=== PATIENT | female | born 1990 | race Caucasian/White ===

== ENCOUNTER 2021-12-10 16:28 | Emergency (ER) | payer MEDICAID, SELFPAY ==
--- NOTE | ~2021-12-10 | XR_ITS ---
EXAMINATION: XR CHEST CLINICAL INFORMATION: Cough. COMPARISON: None. TECHNIQUE: PA view of the chest was obtained. FINDINGS: Normal appearance of the cardiomediastinal silhouette. Questionable mild peribronchial cuffing without focal airspace opacities, pleural effusions or pneumothorax. No acute osseous abnormalities. The upper abdomen is within normal limits. XR/XR chest 1V IMPRESSION: Mild peribronchial cuffing which is nonspecific and could be seen with asthma, reactive airways disease or atypical infections.
[2021-12-10 16:42] VITALS: BP 117/78; BP 145/85; PULSE 108; PULSE 113; RESP 18; TEMP 36.4; O2SAT 100; O2SAT 99; BMI 42.8
--- NOTE | 2021-12-10 17:01 | ED.GENADULT ---
HPI - General Adult General Chief complaint: Upper Respiratory Symptoms Stated complaint: COUGH,COLD SYMP X'S 3 DAYS PER EMS Time Seen by Provider: 12/10/21 16:46 Source: patient Mode of arrival: ambulatory Limitations: no limitations History of Present Illness HPI narrative: [age] year female with history of asthma presents to ED for coughing, body aches, chills, and wheezing. Patient states her daughter was sick 1st and now she is sick. Patient states her daughter tested negative for COVID. Patient states she has been vaccinated and received booster and overall Pfizer. He denies any leg swelling, pleuritic chest pain, coughing up blood, calf pain, or shortness of breath on exertion. Related Data Previous Rx's Medication Instructions Recorded benzonatate 100 mg capsule 100 mg PO TID PRN #15 cap 12/10/21 prednisone 20 mg tablet 40 mg PO DAILY 5 Days #10 tab 12/10/21 Allergies Allergy/AdvReac Type Severity Reaction Status Date / Time latex Allergy Rash Verified 12/10/21 16:41 shrimp Allergy Anaphylaxis Verified 12/10/21 16:41 Review of Systems Review of Systems: Cough, body aches, chills, and wheezing Yes all other systems are reviewed and are negative FOR[facility]LY [facility] Past Medical History Medical History (Updated 12/10/21 @ 18:55 by TIARA Hoffman) Asthma Idiopathic retinal vasculitis, retinal aneurysm, and neuroretinitis syndrome Social History Social History Advance Directives: No Advance Directives Information Provided: No Patient : No Physical Exam Vital Signs: Vital Signs: Last Vital Signs Temp 100.5 F H 12/10/21 18:56 Pulse 114 H 12/10/21 18:56 Resp 17 12/10/21 18:56 BP 115/75 12/10/21 18:56 Pulse Ox 96 12/10/21 18:56 BMI result Body Mass Index 42.8 Const: General: cooperative, healthy appearing, comfortable, no acute distress, well developed, alert, awake and Physically active Orientation/consciousness: patient oriented x3 HENMT: Head: Yes normal to inspection, Yes No palpable skull fracture present, Yes normocephalic, Yes atraumatic and No abrasion Ears: hearing grossly normal bilaterally, external ears normal, TM's normal bilaterally, EAC's normal, mastoids normal and no periauricular adenopathy Throat: Yes posterior oropharynx normal, Yes tonsils normal and Yes uvula midline Eyes: General: appearance normal, both eyes and all related structures Neck: Neck: Yes normal visual inspection, Yes full ROM, Yes no lymphadenopathy, Yes no meningeal signs, Yes trachea midline, Yes supple, No anterior neck swelling and No tender Chest: Chest palpation & inspection: normal inspection of the chest and normal palpation of entire chest wall Resp: Effort & Inspection: normal respiratory effort and able to speak in complete sentences Auscultation: wheezes expiratory wheezes Cardio: Jugular venous distension: no JVD Heart sounds: S1 normal heart sound present and S2 normal heart sound present GI: Inspection: Yes normal to inspection and No abdominal wall ecchymosis Palpation (GI): Soft to palpation, not firm, nontender, no guarding and not rigid : General: No CVA tenderness and Yes no CVA tenderness Back/Spine/Pelvis: Back: no CVA tenderness, No CVA tenderness and No back tenderness Skin: General skin exam: no rashes or lesions noted and elasticity normal Neuro: General: patient oriented x3, gait normal, no meningeal signs and CN's II-XI intact bilaterally Cranial nerves: Yes CN's II-XII intact bilaterally Extrem: Other: Lower extremities negative for swelling, pitting edema, or calf tenderness. General: Yes normal to inspection and Yes full ROM Psych: Appearance: grossly normal, well kempt and not disheveled Course Course Course Narrative: Albuterol inhaler treatment ordered. Steroids ordered. Chest x-ray ordered. COVID swab ordered. Reevaluation(s) Reevaluation #1: COVID swab negative. Chest x-ray shows airway reactive disease. Diagnosis viral induced asthma. Patient feels better after receiving treatment. Patient informed to continue taking albuterol pump and will be discharged with steroids and coughing medication. PATIENT TACHYCARDIC DUE TO ALBUTEROL AND FEVER. PATIENT WELL-APPEARING. NO FURTHER WORKUP/LABS INDICATED. Time: 18:[address] [facility] Narrative Medical decision making narrative: Asthma Lab Data Labs: Lab Results 12/10/21 Range/Units 17:20 COVID-19 (LUIS) Negative (Negative) COVID-19 Clin Com See Note Discharge Plan Discharge Clinical Impression: Upper respiratory infection, Asthma Patient Disposition: Home, Self-Care Instructions: Asthma (DC), Upper Respiratory Infection (DC) Additional Instructions: Continue using albuterol pump at home. The x-ray came back negative for pneumonia. Your Covid test came back negative. Recommend re-testing for covid in 5 days if symptoms conitnue. You will be discharged with steroids and cough medication. Return to the ED immediately for any chest pain, shortness of breath, weakness, dizziness, leg swelling, calf pain, coughing up blood, fever, chills or any other concerning symptoms. Prescriptions: New prednisone 20 mg tablet 40 mg PO DAILY 5 Days Qty: 10 0RF benzonatate 100 mg capsule 100 mg PO TID PRN (Reason: cough) Qty: 15 0RF Stand Alone Forms: Work/School Release Interventions: ED Discharge Assessment Last Done: 12/10/21 19:21 Discharge Date/Time: 12/10/21 19:23 Print Language: Czech
[2021-12-10] MEDS: Albuterol/Iprat 2.5/0.5MG 3 ML AMPUL.NEB INHALE (17:14)
[2021-12-10 17:15] VITALS: PULSE 114; RESP 20; O2SAT 99
[2021-12-10] MEDS: predniSONE 20 MG TABLET 60 MG PO (17:20)
[2021-12-10 17:43] LABS: COVID-19 Test Negative (Negative)
[2021-12-10 18:56] VITALS: BP 115/75; PULSE 114; RESP 17; TEMP 38.1; O2SAT 96
== END 2021-12-10 19:23 | disposition home or self-care (01) ==
PROVIDERS: Physician Assistant; Emergency Provider Emergency Medicine; PCP Internal Medicine
DX: J06.9 Acute upper respiratory infection, unspecified (principal); J45.909 Unspecified asthma, uncomplicated; Z20.822 Contact with and (suspected) exposure to COVID-19
CPT/HCPCS: 71045; 87635; 94640; 99284

== ENCOUNTER 2022-10-02 15:37 | Emergency (ER) | payer MEDICAID, SELFPAY ==
--- NOTE | 2022-10-02 18:33 | PC.NURSE ---
Pt called for triage, Pt not in waiting room.
--- NOTE | 2022-10-02 20:01 | PC.NURSE ---
called for triage, not in waiting room.
== END 2022-10-02 20:35 | disposition left against medical advice (07) ==
LOC: HO.ED 20:33
PROVIDERS: Emergency Provider Emergency Medicine; PCP Internal Medicine
DX: J02.9 Acute pharyngitis, unspecified (principal); H92.09 Otalgia, unspecified ear

== ENCOUNTER 2024-07-01 10:27 | Outpatient (REF) | payer MEDICAID, SELFPAY ==
[2024-07-03 22:04] LABS: TS Negative Control Passed; TS Panel A 0; TS Panel B 0; TS Positive Control Passed; TSpotTB Negative (Negative)
== END 2024-07-01 10:28 | disposition home or self-care (01) ==
LOC: HO.HHCL 10:27
PROVIDERS: Visit Provider Internal Medicine
DX: Z11.1 Encounter for screening for respiratory tuberculosis (principal)
CPT/HCPCS: 36415; 86481

== ENCOUNTER 2024-08-19 12:26 | Outpatient (REF) | payer MEDICAID, SELFPAY ==
--- NOTE | ~2024-08-19 | XR_ITS ---
EXAMINATION: XR SHOULDER, RIGHT CLINICAL INFORMATION: Worsening right shoulder pain for 3 weeks COMPARISON: None available. TECHNIQUE: AP external rotation, Grashey, scapular Y, and axillary views of the right shoulder. FINDINGS: The bones and soft tissues are normal. No fracture. Glenohumeral and acromioclavicular alignment is anatomic with normal joint space. No abnormal soft tissue calcifications. XR/XR shoulder RT min 2V IMPRESSION: Normal right shoulder. Electronically signed by: Josias Delacruz MD 08/19/2024 03:02 PM EDT
== END 2024-08-19 12:27 | disposition home or self-care (01) ==
LOC: HO.HHCX 12:26
PROVIDERS: Visit Provider Nurse Practitioner Primary Care
DX: M25.511 Pain in right shoulder (principal)
CPT/HCPCS: 73030

== ENCOUNTER 2025-04-20 13:05 | Emergency (ER) | payer MEDICAID, SELFPAY ==
--- NOTE | ~2025-04-20 | XR_ITS ---
EXAMINATION: XR SHOULDER, RIGHT CLINICAL INFORMATION: pain COMPARISON: 08/19/2024. TECHNIQUE: Three views of the right shoulder. FINDINGS: Normal bone mineralization. No fracture, dislocation, or suspicious bone lesion. Normal alignment. The glenohumeral joint is normal. The AC joint is normal. There is a type II acromion. No undersurface spurring. The subacromial space is preserved. Remainder of the soft tissue and bony structures appear normal. XR/XR shoulder RT min 2V IMPRESSION: Normal right shoulder. Electronically signed by: Victoriano Pozo MD 04/20/2025 01:42 PM EDT
--- NOTE | ~2025-04-20 | XR_ITS ---
EXAMINATION: XR CHEST CLINICAL INFORMATION: pain COMPARISON: 12/10/21 TECHNIQUE: 2 views of the chest were obtained. FINDINGS: The cardiac, hilar, and mediastinal contours are normal. The lungs are clear bilaterally. There is no pneumothorax or pleural effusion. There is no focal osseous or soft tissue abnormality. XR/XR chest 2V IMPRESSION: Normal chest. Electronically signed by: Victoriano Pozo MD 04/20/2025 01:41 PM EDT
[2025-04-20 13:18] VITALS: BP 126/81; PULSE 78; RESP 16; TEMP 36.1; O2SAT 97; BMI 40.0
--- NOTE | 2025-04-20 13:19 | ECG_ITS ---
Test Reason : PAIN Blood Pressure : */* mmHG Vent. Rate : 66 BPM Atrial Rate : 66 BPM P-R Int : 164 ms QRS Dur : 84 ms QT Int : 406 ms P-R-T Axes : 66 56 56 degrees QTcB Int : 425 ms Normal sinus rhythm with sinus arrhythmia Normal ECG No previous ECGs available Referred By: Volodymyr Dinh Electronically Signed By: Shad Hernandes
--- NOTE | 2025-04-20 13:19 | ED.GENADULT ---
HPI - General Adult General Chief complaint: Extremity Injury, Upper Stated complaint: R Shoulder, R Side Chest Pain, Difficulty Breathin Time Seen by Provider: 04/20/25 16:53 Source: patient and RN notes reviewed Mode of arrival: ambulatory Limitations: no limitations History of Present Illness ED Provider: Jalyn Ramirez PA-C HPI narrative: This is a 34-year-old female who presents emergency department with complaints of right shoulder pain and chest pain status post taking her bra off yesterday. Patient states that while she was reaching behind her on clasping her bra she suddenly felt a popping sensation in her right arm, and has had pain in her right arm since. She states that she also has discomfort in her chest which worsens with the movement of her arm. She denies any shortness for breath. No fevers or chills. No palpitations. Pain in her chest and right shoulder worsens with movement and with palpation. She is not on OCPs. No recent travel, surgery, or hospitalizations. No other complaints or concerns at this time. MD complaint: Left shoulder Related Data Previous Rx's ?Medication ?Instructions ?Recorded benzonatate 100 mg capsule 100 mg PO TID PRN cough #15 caps 12/10/21 prednisone 20 mg tablet 40 mg (2 x 20 mg) PO DAILY 5 days 12/10/21 #10 tabs acetaminophen 500 mg tablet 500 mg PO Q6H PRN pain #30 tabs 04/20/25 (Tylenol Extra Strength) ibuprofen 600 mg tablet 600 mg PO Q6H PRN pain #30 tabs 04/20/25 morphine 15 mg immediate release 15 mg PO Q6H PRN severe pain 04/20/25 tablet (scale score 7-10) #7 tabs oxycodone 5 mg tablet 5 mg PO Q8H PRN severe pain (scale 04/20/25 score 7-10) #7 tabs Allergies Allergy/AdvReac Type Severity Reaction Status Date / Time latex Allergy Rash Verified 04/20/25 13:22 shrimp Allergy Anaphylaxis Verified 04/20/25 13:22 Review of Systems Review of Systems: Yes all other systems are reviewed and are negative Constitutional: Constitutional: Reports as per [facility] Past Medical History Attestation statement: The following information was validated with the patient. Medical History Idiopathic retinal vasculitis, retinal aneurysm, and neuroretinitis syndrome Asthma Social History Social History Advance Directives: No Advance Directives Information Provided: No Do you have a plan to hurt others: No Plan Physical Exam ED Vital Signs: Vital Signs - 24 hr 04/20/25 13:18 Temperature 97.0 F Pulse Rate 78 Respiratory Rate 16 Blood Pressure 126/81 Pulse Oximetry 97 Oxygen Delivery Method Room Air BMI result Body Mass Index 40.0 Const General: cooperative, comfortable and no acute distress Orientation/consciousness: patient oriented x3 Limitations: no limitations HENMT Head: Yes normal to inspection, Yes normocephalic and Yes atraumatic Ears: hearing grossly normal bilaterally General nose exam: Normal external nose present Face and sinus: Yes normal facial exam Mouth: Normal oral and palatal mucosa present, oropharynx normal and moist mucous membranes Throat: Yes posterior oropharynx normal Eyes General: appearance normal, both eyes and all related structures Eyelids: Yes eyelids normal Conjunctivae: conjunctivae normal Sclerae: sclerae normal Pupils: Equal, round and reactive pupils present EOM: EOMs intact bilaterally Neck Neck: Yes normal visual inspection, Yes full ROM and Yes no lymphadenopathy Lymphatic: no lymphadenopathy noted Chest Other: Tenderness palpation along the anterior chest wall Chest palpation & inspection: normal inspection of the chest Resp Effort & Inspection: normal respiratory effort and able to speak in complete sentences Auscultation: clear to auscultation bilaterally, no crackles, no rales, no rhonchi and no wheezes Cardio Rate: regular rate Rhythm: regular rhythm Heart sounds: S1 normal heart sound present and S2 normal heart sound present GI Inspection: Yes normal to inspection Skin General skin exam: no rashes or lesions noted Trauma: no lacerations or abrasions Wounds: no wounds Neuro General: patient oriented x3 and moves all extremities Cranial nerves: Yes Equal, round and reactive pupils present Extrem Other: Right shoulder with no obvious bony deformity or swelling, no overlying erythema or edema. Pain with flexion, proximally to 110?. Strong radial pulse. Negative empty can, able to abduct to approximately 130? positive lift-off test. General: Yes normal to inspection Right upper extremity: normal to inspection Left upper extremity: normal to inspection Right lower extremity: normal to inspection Left lower extremity: normal to inspection Course Course Course Narrative: RME, this is a rapid medical exam performed by Oli Dinh please refer to primary provider for complete H&P- 34-year-old female presents for evaluation of right-sided chest pain and shoulder pain. Her symptoms started when she is in the gym when she reached behind her with the right arm and felt a pop in her right shoulder. Plan for EKG, chest x-ray and right shoulder x-ray. Medications Administered Discontinued Medications Generic Name Dose Route Start Last Admin Trade Name Ramonq PRN Reason Stop Dose Admin Ketorolac Tromethamine 30 mg 04/20/25 17:06 04/20/25 17:11 Ketorolac Tromethamine 30 Mg/Ml Vial IM 04/20/25 17:07 30 mg ONCE ONE Administration Medical Decision Making Medical Decision Making [facility] Narrative: This is a 34-year-old female who presents emergency department with complaints of right shoulder pain status post attempting to take off her bra 1 day ago. [place] a popping sensation immediately had pain On arrival, vital signs within normal limits. right shoulder x-ray revealing no acute findings. Chest x-ray revealing no acute findings. EKG normal sinus rhythm with sinus arrhythmia, at a ventricular rate of 66 beats per minute, TX interval 164, QT QTC 406/420. No STEMI. Discussed findings with patient, she will follow-up with orthopedics. Given strict return precautions. Patient stable for discharge Differential Diagnosis Differential Diagnoses: The differential diagnosis associated with the presentation includes Dislocation, fracture, contusion, sprain Independent Interpretation I performed an independent interpretation of an: EKG Interpretation: See [facility] Radiology Impression Discussion of test interpretation with radiology: I have reviewed the radiologist's reading. Radiologist Impression: FINDINGS: Normal bone mineralization. No fracture, dislocation, or suspicious bone lesion. Normal alignment. The glenohumeral joint is normal. The AC joint is normal. There is a type II acromion. No undersurface spurring. The subacromial space is preserved. Remainder of the soft tissue and bony structures appear normal. XR/XR shoulder RT min 2V IMPRESSION: Normal right shoulder. Electronically signed by: Victoriano Pozo MD 04/20/2025 01:42 PM EDT Dictated By: Victoriano Pozo MD FINDINGS: Normal bone mineralization. No fracture, dislocation, or suspicious bone lesion. Normal alignment. The glenohumeral joint is normal. The AC joint is normal. There is a type II acromion. No undersurface spurring. The subacromial space is preserved. Remainder of the soft tissue and bony structures appear normal. XR/XR shoulder RT min 2V IMPRESSION: Normal right shoulder. Electronically signed by: Victoriano Pozo MD 04/20/2025 01:42 PM EDT RP Dictated By: Victoriano Pozo MD Discharge Plan Discharge Clinical Impression: Shoulder pain, right Patient Disposition: Home, Self-Care Instructions: Shoulder Pain (ED), Arm Pain (ED) Additional Instructions: You were seen in the emergency department due to right shoulder pain. Your x-rays do not show any bony abnormalities however you may have a ligament injury that is causing you to have this pain. Please alternate between ibuprofen and or Tylenol as needed for pain and symptoms. Take ibuprofen 600 mg every 6 hours, 2 hours later, you can take Tylenol extra-strength 500 mg to a 1000 mg every 6- 8 hours. Please be advised that oxycodone is a strong pain medication, do not drink or drive while taking this medication. Please be advised that this is an addictive medication therefore should only be reserved for severe pain only. Rest, ice, and gently massage, and perform [id number] exercises. You need follow-up with the orthopedic team, call tomorrow to make an appointment. If any new or worsening symptoms occur including but not limited to worsening pain, please seek emergent care. Prescriptions: New ibuprofen 600 mg tablet 600 mg PO Q6H PRN (Reason: pain) Qty: 30 0RF acetaminophen [Tylenol Extra Strength] 500 mg tablet 500 mg PO Q6H PRN (Reason: pain) Qty: 30 0RF morphine 15 mg tablet 15 mg PO Q6H PRN (Reason: severe pain (scale score 7-10)) Qty: 7 0RF Rx Instructions: Partial Fill upon patient request. oxycodone 5 mg tablet 5 mg PO Q8H PRN (Reason: severe pain (scale score 7-10)) Qty: 7 0RF Rx Instructions: Partial Fill upon patient request. No Action prednisone 20 mg tablet 40 mg PO DAILY 5 Days Qty: 10 0RF benzonatate 100 mg capsule 100 mg PO TID PRN (Reason: cough) Qty: 15 0RF Referrals: [facility] Orthopedic Surgeons [Provider Group] Interventions: ED Discharge Assessment Last Done: 04/20/25 17:46 Discharge Date/Time: 04/20/25 17:48 Print Language: Khmer
[2025-04-20] MEDS: Ketorolac Tromethamine 30 MG/ML VIAL IM (17:11)
--- NOTE | 2025-04-20 17:44 | PC.NURSE ---
Pt placed in room, given IM toradol and DC was placed. Pt in agreement with dc plan, she has an appt with her ortho already. Pt able to ambulate out of ED stable on RA
[2025-04-20 17:46] VITALS: BP 126/81; PULSE 78; RESP 16; TEMP 36.1; O2SAT 97
--- OUTSIDE RECORDS SUMMARY | 2025-04-20 18:15 | XMS_ITS | Encounter Summary ---
Author Organization [employer] Address [address] [place] [address] Care Team Providers Care Breakfast Attendant Name Role Phone Carrie Santana MD Primary Care Provide r Reason for Visit * Reason Comments Med Change Request Encounter Details Date Type Department Care Team ([facility] st Contact Info) Description 10/14/2023 Refill [facility] MEDICINE [address], [place] [phone] Carrie Santana MD [address] [place] [address] Moderate persistent asthma without complication Social History Tobacco Use Types Packs/Day Years Used Date Smoking Tobacco: Never Passive Smoke Exposure: Never Smokeless Tobacco: Never Depression Answer Date Recorded Patient Health Questionnaire-9 Score 15 02/13/2023 Housing Stability Answer Date Recorded What is your housing situation today? I have rhett maher 08/19/[address] you li ve. Do you have problems with any of the following? None of the above 08/19/2023 Food Insecurity Answer Date Recorded Within the past 12 months, y ou worried that your food would run out before you got money to buy more: Never True 08/19/2023 Within the past 12 months,th e food you bought just didn't last and you didn't have enough money to get more: Never True Transportation Answer Date Recorded In the past 12 months, has l ack of transportation kept you from medical appts, meetings, work or from getting things needed for daily living? No 08/19/2023 Utilities Answer Date Recorded In the past 12 months, has t he [employer], gas, oil or water company threatened to shut off services in your home? No 08/19/2023 Depression Answer Date Recorded Patient Health Questionnaire-2 Score 2 02/13/2023 Comments Unknown Sex and Gender Information Value Date Recorded Sex Assigned at Female 09/02/2022 10:34 AM EDT Legal Sex Female 10:34 AM EDT Gender Identity Female 09/02/2022 10:34 AM EDT Sexual Orientation Straight 09/02/2022 10 :34 AM EDT documented as of this encounter Plan of Treatment Upcoming Encounters Date Type Department Care Team (Late st Contact Info) Description 04/26/2025 11:30 AM EDT Telemedicine [facility] MEDICINE [address] [place] [address] Carrie Santana MD [address] [place] [address] documented as of this encounter Visit Diagnoses Diagnosis Moderate persistent asthma without complication documented in this encounter Additional Health Concerns Assessment Noted Time PHQ-9 Depression Total Score: 15 023 3:13 PM EDT documented as of this encounter Care Teams Breakfast Attendant Relationship Specialty Start Date End Date Carrie Santana MD [address] [place] [address] PCP - General Family Medicine 07/02/19 documented as of this encounter
== END 2025-04-20 17:48 | disposition home or self-care (01) ==
PROVIDERS: Emergency Provider Emergency Medicine; PCP Internal Medicine
DX: M25.511 Pain in right shoulder (principal); J45.909 Unspecified asthma, uncomplicated
CPT/HCPCS: 71046; 73030; 93005; 96372; 99284; J1885

== ENCOUNTER → 2025-04-20 13:19 | Outpatient (BNV) | payer MEDICAID, SELFPAY | PROVIDERS: PCP Internal Medicine; Visit Provider Radiology Diagnostic Radiology | DX: R07.9 Chest pain, unspecified (principal); M25.511 Pain in right shoulder | CPT/HCPCS: 71046; 73030 ==

== ENCOUNTER → 2025-04-20 13:19 | Outpatient (BNV) | payer MEDICAID, SELFPAY | PROVIDERS: Emergency Provider Emergency Medicine; PCP Internal Medicine; Visit Provider Internal Medicine Cardiovascular Disease | DX: R07.89 Other chest pain (principal) | CPT/HCPCS: 93010 ==

== ENCOUNTER 2025-09-19 08:06 | Outpatient (REF) | payer MEDICAID, SELFPAY | END 2025-09-19 08:07 | disposition home or self-care (01) | LOC: HO.HOSX 08:06 | DX: Z13.89 Encounter for screening for other disorder (principal) ==